=== PATIENT | female | born 1975 | race Two or more races ===

== ENCOUNTER 2016-11-20 16:21 | Outpatient (CLI) ==
--- NOTE | 2016-11-20 17:10 | DI ---
Exam: Left ankle three-view. HISTORY: Pain and left ankle and joints. Findings: There are no prior studies at this institution. Three images of the left ankle are submi tted, site of pain is not specified, nor is a marker present. There is no acute fracture or disloca tion. There is no radiodense foreign body. In the central aspect of the distal tibial metaphysis t here is a rounded 9 mm lucency with a sclerotic margin, partially visualized. There is no cortical elevation or reaction visualized. Mild soft tissue swelling is noted laterally. Impressions: Mild soft tissue swelling with no acute fracture or dislocation in the left ankle. 9 mm rounded lucency in the central distal tibial metaphysis with a sclerotic margin. Given the hist ory of pain without history of trauma, recommendation is MRI of the left ankle for further character ization.
--- NOTE | 2016-11-20 17:11 | DI ---
Exam: Left foot three-view. HISTORY: Left foot pain. Findings: Three images of the left foot are submitted. These demonstrate no acute fracture or disl ocation. There is no osseous erosion or radiodense foreign body. There is no focal soft tissue swe lling. Impressions: No acute fracture or dislocation involving the left foot.
== END 2016-11-20 16:22 | disposition home or self-care (01) ==
LOC: RAD 16:21
PROVIDERS: ATTEND Physician Assistant Medical
DX: M25.572 Pain in left ankle and joints of left foot (principal)